=== PATIENT | female | born 1960 | race Hispanic/Latino ===

== ENCOUNTER 2017-10-11 17:25 | Emergency (ER) | payer MEDICARE ==
[2017-10-11 17:32] VITALS: RESP 16; O2SAT 97
[2017-10-11] MEDS ORDERED: DiphenhydrAMINE 50 mg/ml Inj IVP STA (17:43)
[2017-10-11] MEDS ORDERED: Sodium Chloride 0.9% 1,000 ML IV STA (17:43)
[2017-10-11] MEDS ORDERED: DiphenhydrAMINE 50 mg/ml Inj ONE (17:53)
--- NOTE | 2017-10-11 18:14 | ED PDOC ---
HPI: Abdomen Time Seen by Provider: 10/11/17 17:34 Chief Complaint (Nursing): Abdominal Pain Chief Complaint (Provider): Abdominal Pain History Per: Patient History/Exam Limitations: no limitations Onset/Duration Of Symptoms: Days (x1) Outside of [place] travel?: No Current Symptoms Are (Timing): Still Present Quality Of Discomfort: Cramping, "Pain" Associated Symptoms: Chills, Vomiting, Diarrhea, Loss Of Appetite. denies: Fever Additional Complaint(s): 57 year old female with a history of depression presents to the ED complaining of multiple episodes of intractable, nonbilious, nonbloody vomiting, watery nonbloody diarrhea, and diffuse, cramping abdominal pain. She reports she felt fine when she went to bed last night, but developed abdominal pain around 10 am this morning. She is unable to tolerate any food or fluid at this time and has nothing to eat all day. Patient states she has chills, loss of appetite, lightheadedness, and weakness but denies fever, sick contacts, travel or any other medical complaints at this time. PMD: none provided Past Medical History Reviewed: Historical Data, Nursing Documentation, Vital Signs Vital Signs: Last Vital Signs Temp 98.5 F 10/11/17 17:28 Pulse 143 H 10/11/17 17:28 Resp 16 10/11/17 17:28 BP 143/78 10/11/17 17:28 Pulse Ox 97 10/11/17 18:22 - Medical History PMH: Depression - Surgical History Surgical History: No Surg Hx - Family History Family History: States: No Known Family Hx - Social History Current smoker - smoking cessation education provided: No Ex-Smoker (has not smoked in the last 12 months): No Alcohol: None Drugs: Denies - Home Medications Home Medications: Ambulatory Orders Medication Instructions Recorded Acetaminophen with Codeine 1 tab PO Q6 #10 tab 03/02/15 [Tylenol with Codeine No. 3 300 mg-30 mg] Dicyclomine [Bentyl] 20 mg PO QID PRN #20 tab 10/11/17 Ondansetron ODT [Zofran ODT] 1 odt PO Q6 PRN #20 odt 10/11/17 - Allergies Allergies/Adverse Reactions: Allergies Allergy/AdvReac Type Severity Reaction Status Date / Time No Known Allergies Allergy Verified 03/02/15 01:43 Review of Systems ROS Statement: Except As Marked, All Systems Reviewed And Found Negative Constitutional: Positive for: Chills, Weakness. Negative for: Fever Cardiovascular: Positive for: Light Headedness Gastrointestinal: Positive for: Vomiting, Abdominal Pain, Diarrhea Physical Exam - Reviewed Nursing Documentation Reviewed: Yes Vital Signs Reviewed: Yes - Physical Exam Appears: Positive for: In Acute Distress (Acute gastrointestinal distress, tired appearing ) Head Exam: Positive for: ATRAUMATIC, NORMOCEPHALIC Skin: Positive for: Normal Color, Warm, Pallor Eye Exam: Positive for: EOMI, PERRL ENT: Positive for: Other (tacky mucous membranes) Neck: Positive for: Painless ROM, Supple Cardiovascular/Chest: Positive for: Tachycardia, Other (Regular rhythm ) Respiratory: Positive for: Normal Breath Sounds. Negative for: Wheezing Gastrointestinal/Abdominal: Positive for: Tenderness (diffuse tenderness to palpation ), Guarding (voluntary). Negative for: Mass, Distended, Rebound Back: Positive for: Normal Inspection. Negative for: Decreased ROM Extremity: Positive for: Normal ROM. Negative for: Deformity Lymphatic: Negative for: Adenopathy Neurologic/Psych: Positive for: Alert, Oriented (x3) - Laboratory Results Result Diagrams: 10/11/17 18:00 10/11/17 18:00 - ECG O2 Sat by Pulse Oximetry: 97 (RA) Pulse Ox Interpretation: Normal Medical Decision Making Medical Decision Making: Time: 17:40 Impression: Vomiting, abdominal pain, diarrhea Differential diagnoses include but are not limited to: dehydration, electrolyte abnormalities, gastroenteritis, or sepsis Plan: --Type and screen --VBG --EKG --Alcohol serum --CMP --Urine drug screen --LDH --Lipase --Magnesium --Phosphorous --Urine dip --CBC with differentials --Benadryl 25 mg IVP --Dextrose --Pepcid 20 mg IVBP --Reglan 10 mg IV --Blood Culture Labs: Leukocytosis. No electrolyte abnormalities Udip: ketones 1020p On reevaluation pt is feeling a lot better. Eager to go home and eat. DW pt findings and plan of care. Also d/w pt need to have PMD for follow up. Scribe Attestation: Documented by Cynthia Rasmussen, acting as a scribe for Nuris Le MD Provider Scribe Attestation: All medical record entries made by the Scribe were at my direction and personally dictated by me. I have reviewed the chart and agree that the record accurately reflects my personal performance of the history, physical exam, medical decision making, and the department course for this patient. I have also personally directed, reviewed, and agree with the discharge instructions and disposition. Disposition - Clinical Impression Clinical Impression: Abdominal pain, Vomiting and diarrhea Counseled Patient/Family Regarding: Studies Performed, Diagnosis, Need For Followup, Rx Given - Disposition Referrals: [facility] [Outside] (FOLLOW UP WITH YOUR PMD OR CLINIC IN 24-48 HOURS FOR REEVALUATION) Disposition: Routine/Home Disposition Time: 22:35 Condition: IMPROVED Prescriptions: Dicyclomine [Bentyl] 20 mg PO QID PRN #20 tab PRN Reason: abdominal pain Ondansetron ODT [Zofran ODT] 1 odt PO Q6 PRN #20 odt PRN Reason: Nausea/Vomiting Instructions: Viral Gastroenteritis Forms: [facility] (Russian)
[2017-10-11 18:28] LABS: BASO % 0.2 % (0.0-2.0); HEMOGLOBIN 14.5 g/dL (12.0-16.0); LYMPH # 0.3 K/uL (1.0-4.3); LYMPH % 2.2 % (20.0-40.0); MEAN CELL VOLUME 94.4 fl (81.0-99.0); MEAN CORPUSCULAR HEMOGLOBIN 32.5 pg (27.0-31.0); MEAN CORPUSCULAR HGB CONC 34.4 g/dL (33.0-37.0); MEAN PLATELET VOLUME 9.3 fl (7.2-11.7); MONO # 0.6 K/uL (0.0-0.8); MONO % 4.4 % (0.0-10.0); NEUT # 13.1 K/uL (1.8-7.0); NEUT % 93.2 % (50.0-75.0); PLATELET COUNT 184 K/uL (130-400); RBC 4.46 Mil/uL (3.80-5.20); RED CELL DISTRIBUTION WIDTH 13.2 % (11.5-14.5); WHITE BLOOD COUNT 14.1 K/uL (4.8-10.8)
[2017-10-11 18:35] LABS: VENOUS BLOOD GAS BASE EXCESS 2.2 mmol/L (0.0-2.0); VENOUS BLOOD GAS PCO2 49 mmHg (40-60); VENOUS BLOOD GAS PO2 26 mm/Hg (30-55); VENOUS BLOOD PH 7.37 (7.32-7.43)
[2017-10-11 18:41] LABS: ALB/GLOB RATIO 1.5 (1.0-2.1); ALBUMIN 4.9 g/dL (3.5-5.0); ALT/SGPT 30 U/L (9-52); AST/SGOT 32 U/L (14-36); BLOOD UREA NITROGEN 15 mg/dl (7-17); GFR AFRICAN-AMERICAN > 60; GFR NON-AFRICAN AMERICAN > 60; LIPASE 32 U/L (23-300)
[2017-10-11 20:00] LABS: LYMPHOCYTE 3 % (20-50); MONOCYTE 6 % (0-10); NEUTROPHIL 91 % (42-75); PLATELET ESTIMATE NORMAL (NORMAL); TOTAL CELLS COUNTED 100
[2017-10-11 22:36] VITALS: BP 108/63; PULSE 75; TEMP 97.8
[2017-10-11 22:43] LABS: BARBITURATES, UR NEGATIVE (NEGATIVE); BENZODIAZEPINES, UR NEGATIVE (NEGATIVE); OPIATES, UR NEGATIVE (NEGATIVE); PHENCYCLIDINE, UR NEGATIVE (NEGATIVE)
--- NOTE | 2017-10-12 09:02 | CARD ---
APPROVED REPORT Date of service: 10/11/2017 EKG Measurement Heart [id number] <Conclusion> Normal sinus rhythm Normal ECG
== END 2017-10-11 22:50 | disposition home or self-care (01) ==
LOC: H.ER 17:25
DX: R10.9 Unspecified abdominal pain (principal); R11.10 Vomiting, unspecified; R19.7 Diarrhea, unspecified
CPT/HCPCS: 80053; 82803; 83615; 83690; 83735; 84100; 85025; 86850; 86900; 87040; 93005; 96374; 99284; G0480; J1200; J2765; J7030

== ENCOUNTER 2018-04-07 20:43 | Emergency (ER) | payer MEDICARE ==
[2018-04-07] MEDS ORDERED: Sodium Chloride 0.9% 1,000 ML IV STA (21:36)
--- NOTE | 2018-04-07 22:01 | ED PDOC ---
HPI: Dental Pain/Injury Time Seen by Provider: 04/07/18 21:11 Chief Complaint (Nursing): ENT Problem Chief Complaint (Provider): throat bleeding History Per: Patient History/Exam Limitations: no limitations Onset/Duration Of Symptoms: Mins (2) Additional Complaint(s): 57 year old female presents to the ED complaining of bleeding from her mouth s/p throat mass resection on March 28 at [facility] by Dr. Triplett. Patient reports that just [employer], she had a large amount of bleeding from her mouth that lasted 2 minutes. Just prior to that, she had gently brushed the front of her mouth and felt a small pop from site of surgery in her throat. She states she spit out a small dark clot which was followed by a large amount of bright red blood which looked like a cup of blood. This lasted about 2 minutes and then stopped. Patient called the nurse practitioner covering for the ENT surgeon and was told to go to the nearest ER. Bleeding has not started again but she feels light headed. Patient reports she is mostly scared by large amount of bleeding. Patient denies any history of excessive bleeding or family history of clotting disorders. PMD: none provided Past Medical History Reviewed: Historical Data, Nursing Documentation, Vital Signs Vital Signs: Last Vital Signs Temp 98.0 F 04/07/18 20:46 Pulse 75 04/07/18 20:46 Resp 16 04/07/18 20:46 BP 96/54 L 04/07/18 20:46 Pulse Ox 99 04/07/18 20:46 - Medical History PMH: Depression - Surgical History Other surgeries: Throat mass resection - Family History Family History: States: No Known Family Hx - Social History Current smoker - smoking cessation education provided: No - Home Medications Home Medications: Ambulatory Orders Medication Instructions Recorded Acetaminophen with Codeine 1 tab PO Q6 #10 tab 03/02/15 [Tylenol with Codeine No. 3 300 mg-30 mg] Dicyclomine [Bentyl] 20 mg PO QID PRN #20 tab 10/11/17 Ondansetron ODT [Zofran ODT] 1 odt PO Q6 PRN #20 odt 10/11/17 - Allergies Allergies/Adverse Reactions: Allergies Allergy/AdvReac Type Severity Reaction Status Date / Time No Known Allergies Allergy Verified 03/02/15 01:43 Review of Systems ROS Statement: Except As Marked, All Systems Reviewed And Found Negative Constitutional: Positive for: Other (Lightheaded) ENT: Positive for: Other (Bleed from mouth) Physical Exam - Reviewed Nursing Documentation Reviewed: Yes Vital Signs Reviewed: Yes - Physical Exam Appears: Positive for: No Acute Distress Head Exam: Positive for: ATRAUMATIC, NORMOCEPHALIC Skin: Positive for: Warm, Dry Eye Exam: Positive for: EOMI, PERRL ENT: Positive for: Other (Feeding tube coming out of right nare; dried blood around the mouth; throat partial resection of the left soft palette; white red membranous tissue on the posterior pharynx; mucous membranes moist; no visible active bleeding) Neck: Positive for: Painless ROM, Supple Cardiovascular/Chest: Positive for: Regular Rate, Rhythm. Negative for: Murmur Respiratory: Positive for: Normal Breath Sounds. Negative for: Respiratory Distress Gastrointestinal/Abdominal: Positive for: Soft. Negative for: Tenderness Back: Positive for: Normal Inspection. Negative for: Decreased ROM Lymphatic: Negative for: Adenopathy Neurologic/Psych: Positive for: Alert. Negative for: Motor/Sensory Deficits - Laboratory Results Result Diagrams: 04/07/18 22:14 04/07/18 22:14 - ECG O2 Sat by Pulse Oximetry: 99 (RA) Pulse Ox Interpretation: Normal Medical Decision Making Medical Decision Making: Initial Impression: Post surgical throat surgery bleeding Initial Plan: --Type and screen stat --CMP --CBC --PTT --Prothrombin time --Sodium chloride 1000mL IV Discussed with Dr. Triplett who requests patient to be transferred to [place] for further evaluation and management. Discussed with patient plan of care and patient is agreeable to transfer. 2200 Reeval pt still has no further bleeding 2300 Labs with no emergently significant abnormalities Scribe Attestation: Documented by Benjy Rasmussen acting as a scribe for Nuris Le MD. Provider Scribe Attestation: All medical record entries made by the Scribe were at my direction and personally dictated by me. I have reviewed the chart and agree that the record accurately reflects my personal performance of the history, physical exam, medical decision making, and the department course for this patient. I have also personally directed, reviewed, and agree with the discharge instructions and disposition. Disposition - Clinical Impression Clinical Impression: Post-op bleeding - Disposition Disposition: Other Institution Disposition Time: 22:00 Condition: [facility]IR
[2018-04-07 22:19] LABS: BASO % 0.3 % (0.0-2.0); EOS # 0.1 K/uL (0.0-0.7); EOS % 1.5 % (0.0-4.0); HEMOGLOBIN 13.7 g/dL (12.0-16.0); LYMPH # 0.9 K/uL (1.0-4.3); LYMPH % 10.9 % (20.0-40.0); MEAN CORPUSCULAR HEMOGLOBIN 31.7 pg (27.0-31.0); MEAN CORPUSCULAR HGB CONC 33.4 g/dL (33.0-37.0); MEAN PLATELET VOLUME 8.7 fl (7.2-11.7); MONO # 0.8 K/uL (0.0-0.8); MONO % 9.7 % (0.0-10.0); NEUT # 6.4 K/uL (1.8-7.0); NEUT % 77.6 % (50.0-75.0); RBC 4.33 Mil/uL (3.80-5.20); RED CELL DISTRIBUTION WIDTH 13.7 % (11.5-14.5); WHITE BLOOD COUNT 8.2 K/uL (4.8-10.8)
[2018-04-07 22:23] LABS: INR 1.2; PROTHROMBIN TIME 13.3 Seconds (9.8-13.1)
[2018-04-07 22:25] LABS: PARTIAL THROMBOPLASTIN TIME 32.4 Seconds (25.6-37.1)
[2018-04-07 22:32] LABS: ALB/GLOB RATIO 1.3 (1.0-2.1)
[2018-04-07 22:36] LABS: ALBUMIN 4.1 g/dL (3.5-5.0); ALT/SGPT 39 U/L (9-52); AST/SGOT 38 U/L (14-36); BLOOD UREA NITROGEN 25 mg/dl (7-17); CALCIUM 9.5 mg/dL (8.4-10.2); GFR NON-AFRICAN AMERICAN > 60
[2018-04-07 23:47] VITALS: RESP 17; TEMP 99.3
[2018-04-08 00:50] VITALS: PULSE 76
[2018-04-08 02:27] VITALS: BP 102/59
[2018-04-10 11:38] VITALS: O2SAT 99
== END 2018-04-08 02:45 | disposition short-term general hospital (02) ==
LOC: H.ER 20:43
DX: L76.22 Postprocedural hemorrhage of skin and subcutaneous tissue following other procedure (principal)
CPT/HCPCS: 80053; 85025; 85610; 85730; 86850; 86900; 99283; J7030